=== PATIENT | male | born 1980 | race Caucasian/White ===

== ENCOUNTER 2016-10-09 22:28 | Emergency (ER) | payer MEDICAID ==
[~2016-10-09] VITALS: Ht 185.4 cm; Wt 91.8 kg
[~2016-10-09 22:28] MED LIST: CLON1TAB PO
[2016-10-09 22:30] VITALS: BP 161/107
== END 2016-10-10 00:07 | disposition home or self-care (01) ==
LOC: ED 23:29
DX: K08.89 Other specified disorders of teeth and supporting structures (principal); F41.1 Generalized anxiety disorder; G89.29 Other chronic pain; F43.10 Post-traumatic stress disorder, unspecified
CPT/HCPCS: 99283

== ENCOUNTER 2017-03-27 20:17 | Emergency (ER) | payer MEDICAID, OTHER ==
[~2017-03-27] VITALS: Ht 185.4 cm; Wt 88.5 kg
[2017-03-27 20:19] VITALS: BP 133/96
== END 2017-03-27 21:01 | disposition home or self-care (01) ==
LOC: ED 20:55
DX: K02.9 Dental caries, unspecified (principal); K01.1 Impacted teeth
CPT/HCPCS: 99283

== ENCOUNTER 2017-07-16 12:17 | Emergency (ER) | payer OTHER ==
[~2017-07-16] VITALS: Ht 185.4 cm; Wt 88.3 kg
[2017-07-16 12:19] VITALS: BP 145/88
[2017-07-16] MEDS ORDERED: CYCLOBENZAPRINE 10 MG TABLET ONE (13:00)
[2017-07-16] MEDS ORDERED: OXYcodone/APAP 5/325MG TABLET PO ONE (13:00)
[2017-07-16] MEDS ORDERED: CYCLOBENZAPRINE 10 MG TABLET PO ONE (13:00)
[2017-07-16] MEDS ORDERED: OXYcodone/APAP 5/325MG TABLET ONE (13:01)
== END 2017-07-16 14:07 | disposition home or self-care (01) ==
LOC: ED 13:00
DX: S39.012A Strain of muscle, fascia and tendon of lower back, initial encounter (principal); M54.16 Radiculopathy, lumbar region; Z88.0 Allergy status to penicillin; W01.0XXA Fall on same level from slipping, tripping and stumbling without subsequent striking against object, initial encounter; Y93.89 Activity, other specified; Y92.89 Other specified places as the place of occurrence of the external cause; Y99.9 Unspecified external cause status
CPT/HCPCS: 72110; 99284; J7512